=== PATIENT | female | born 1995 | race Caucasian/White ===

== ENCOUNTER 2024-03-30 15:58 | Emergency (ER) | payer SELFPAY ==
[2024-03-30 16:02] VITALS: BP 129/84
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
[2024-03-30 18:11] VITALS: BP 121/69
[2024-03-30] MEDS: ADACEL 0.5 ML IM (19:31)
[2024-03-30] MEDS: TYLENOL 1000 MG PO (20:25)
[2024-03-30 20:55] VITALS: BP 110/68
== END 2024-03-30 20:56 | disposition home or self-care (01) ==
LOC: EMR 15:58
PROVIDERS: EMERGENCY PHYSICIAN Emergency Medicine; FAMILY PHYSICIAN Family Medicine
DX: R07.89 Other chest pain (principal); S09.90XA Unspecified injury of head, initial encounter; S80.02XA Contusion of left knee, initial encounter; V43.52XA Car driver injured in collision with other type car in traffic accident, initial encounter; Y92.410 Unspecified street and highway as the place of occurrence of the external cause; Z23 Encounter for immunization; K58.9 Irritable bowel syndrome, unspecified
CPT/HCPCS: 99283; 90471; 71046; 73564; 90715; 93005

== ENCOUNTER → 2024-06-17 16:25 | Outpatient (REF) | payer OTHER, SELFPAY | LOC: RAD 16:25 | PROVIDERS: ATTENDING PHYSICIAN Obstetrics & Gynecology; FAMILY PHYSICIAN Family Medicine | DX: N93.8 Other specified abnormal uterine and vaginal bleeding (principal); R10.30 Lower abdominal pain, unspecified | CPT/HCPCS: 76830 ==